=== PATIENT | male | born 1935 | race Caucasian/White ===

== ENCOUNTER → 2016-11-11 | Day surgery (SDC) | payer MEDICARE, BC ==
[~2016-11-11] VITALS: Ht 170.2 cm; Wt 73.0 kg
[~2016-11-11] MED LIST: AMLO5TAB2 PO; ASPI81CH CHEW; ATEN50TA PO; BACITRACIN TOP OINT 15 GM TUBE ONE; BUPIVACAINE/EPINEPHRINE 0.25% PF 30 ML VIAL ONE; FINA5TAB2 PO; LACTATED RINGER'S 1000 ML INJ 1,000 ML IV ONE; LACTATED RINGER'S 1000 ML INJ 1,000 ML ONE; LIDOCAINE 1%/EPINEPHrine 1:100,000 SOLN 30 ML VIAL ONE; ONDANSETRON HCL 4 MG/2 ML VIAL IV PUSH ONE; PRAV40TA2 PO; PRESCAP5 PO; PROPOFOL 200 MG/20 ML AMP IV ONE; SODIUM BICARBONATE 8.4% INJ 50 ML ONE; ceFAZolin 2 GM PREMIX 50 ML ONE; fentaNYL CITRATE 250 MCG/5 ML AMP ONE
[2016-11-11 06:43] VITALS: BP 140/80; PULSE 61; RESP 18; TEMP 98; O2SAT 95
[2016-11-11 12:15] VITALS: BP 120/65; PULSE 65; RESP 15; TEMP 97.6; O2SAT 95
--- NOTE | 2016-11-12 13:17 | EKG ---
Date Performed: 11/11/2016 Time Performed: 06:58:28 PTAGE: 81 years EKG: Sinus bradycardia. Left bundle branch block Abnormal ECG NO PREVIOUS TRACING DOCTOR: Scooter Mahmood Interpretating Date/Time 11/12/2016 13:16:21
--- NOTE | 2016-11-14 10:06 | MP ---
cc: CHILO LY DATE OF SURGERY: 11/11/2016. PREOPERATIVE DIAGNOSIS: 1. Squamous cell carcinoma left anterior shoulder. 2. Melanoma in situ right posterior shoulder. 3. Dysplastic nevus left posterior shoulder. 4. Dysplastic nevus right knee. 5. Lipoma right chest wall. POSTOPERATIVE DIAGNOSIS: 1. Squamous cell carcinoma left anterior shoulder. 2. Melanoma in situ right posterior shoulder. 3. Dysplastic nevus left posterior shoulder. 4. Dysplastic nevus right knee. 5. Lipoma right chest wall. OPERATIVE PROCEDURE PERFORMED: 1. Wide excision of right posterior shoulder melanoma in situ with intermediate closure of wound 5 cm x 2.5 cm. 2. Excision of left posterior shoulder dysplastic nevus, 1.5 cm x 3 cm simple closure. 4. Wide excision of left anterior shoulder squamous cell carcinoma 3 cm x 4.5 cm with simple closure. 5. Right knee excision of dysplastic nevus with simple closure of 2.5 cm x 1.0 cm. 6. Excision of right chest wall lipoma 5 cm x 3 cm x 3 cm mass with intermediate closure of wound 1 cm x 5 cm. SURGEON: Chilo Ly M.D. ACCESS NURSE: Staff. ANESTHESIA: General. BLOOD LOSS: Less than 25 mL. COMPLICATIONS: None. FINDINGS: Stitch marked superior proximal to all lesions. INDICATIONS FOR THE PROCEDURE: The patient is a 81-year-old male who underwent multiple biopsies of pigmented lesions and was diagnosed with melanoma in situ of the right shoulder and multiple dysplastic nevi. He also complained of a longstanding right chest wall mass, clinically a lipoma. Discussion with the patient about the risks, benefits, alternatives to definitive excision of these lesions and excision of the lipoma. The patient agreed to undergo the procedure. The patient was taken to the operating room at the [facility] as an outpatient. DESCRIPTION OF THE PROCEDURE IN DETAIL: After informed consent was obtained and all surgical sites were marked with the patient, the patient was taken to the operating room and placed in a supine position under general anesthesia. The patient's surgical sites on the left shoulder were initially prepped and draped in the usual sterile fashion. A time out was performed. Local anesthetic with 0.25% Marcaine with epinephrine was used at all excision sites prior to operating. Attention was turned to the patient's left posterior shoulder dysplastic nevus and performed an elliptical type incision with the 15 blade scalpel. Bovie electrocautery to remove the subcutaneous tissue. A stitch was marked proximal and the wound was closed with deep dermal 3-0 PDS followed by 4-0 Monocryl and Dermabond. Next the patient's left anterior shoulder squamous cell carcinoma was removed with a wide excision. We marked out at least 5 mm on either side of the biopsy site and excised this with a 15 blade scalpel in line with the limb and using the Bovie electrocautery to excise the subcutaneous portion. This was marked with a stitch proximal and passed off for permanent processing. We had excellent hemostasis with the bovie electrocautery. No undermining was needed as this was a small lesion. We were able to close this with 3-0 deep dermal followed by 4-0 Monocryl and Dermabond. At this point in time, the patient was repositioned and bumped on the right side and his right shoulder, right chest wall and right knee were prepped and draped in the usual sterile fashion. Again, local anesthetic was instilled at all sites. The patient's right nevus was excised with a 15 blade scalpel followed by Bovie electrocautery for the subcutaneous portion and closed with 3-0 PDS deep dermal suture followed by a 4-0 Monocryl and Dermabond. The patient's right posterior shoulder melanoma in situ was widely excised with at least 0.5 cm on either side of the patient's biopsy scar. There was no residual pigmentation. This was excised with a 15 blade scalpel followed by Bovie electrocautery. We did perform a small amount of undermining approximately [address] the wound to release some of the tension. There was minimal tension and this was closed with multiple 3-0 PDS deep dermal sutures followed by 4-0 Monocryl and Dermabond. Lastly, we turned our attention towards the right chest wall. We then excised the lipoma with an approximately 5 cm horizontal skin incision. This was a mature fatty-looking lipoma well-encapsulated. It was completely removed from the surrounding tissue. We did close the chest wall fascia with two interrupted 3-0 PDS sutures followed by four deep dermal PDS sutures followed by 4-0 Monocryl and Dermabond. At this point in time, the patient was discontinued from anesthesia and taken to the post-anesthesia care unit in stable condition. The patient tolerated the procedure well. No apparent complications. All counts were correct. I was present and scrubbed for the entire procedure. MD ANTHONY Leon/ROGERS /10:06 AM /9:50 AM JESSY
== END | disposition home or self-care (01) ==
LOC: PHSDC 06:10
PROVIDERS: ATTEND Surgery
DX: D03.61 Melanoma in situ of right upper limb, including shoulder (principal); C44.629 Squamous cell carcinoma of skin of left upper limb, including shoulder; D17.1 Benign lipomatous neoplasm of skin and subcutaneous tissue of trunk; D23.71 Other benign neoplasm of skin of right lower limb, including hip; D23.62 Other benign neoplasm of skin of left upper limb, including shoulder; I10 Essential (primary) hypertension
CPT/HCPCS: 00300; 11404; 11406; 11606; 12032; 88304; 88305; 93005; J0690; J2405; J3010; J7120